=== PATIENT | male | born 1980 | race Caucasian/White ===

== ENCOUNTER 2022-09-10 06:35 | Day surgery (SDC) | payer OTHER ==
[~2022-09-10] VITALS: Ht 170.2 cm; Wt 140.6 kg
[~2022-09-10 06:35] MED LIST: HYDR-4902 PO; [UNRECOGNIZED DRUG - CODE] PO
[2022-09-10] MEDS ORDERED: BUPIVACAINE HCL 0.25% P/F 10 ML VIAL ONE (06:52)
[2022-09-10] MEDS ORDERED: GLYCOPYRROLATE 0.2 MG/ML 1ML VIAL ONE (06:56)
[2022-09-10] MEDS ORDERED: PROPOFOL 10 MG/ML 20 ML IV ONE ×2 (06:56→07:24)
[2022-09-10] MEDS ORDERED: LIDOCAINE 2% (LOCAL ANESTH.) PF 5ml SDV ONE (06:56)
[2022-09-10] MEDS ORDERED: KETOROLAC TROMETH 30 MG/ML 1ML VIAL ONE (06:56)
[2022-09-10] MEDS ORDERED: ONDANSETRON HCL 4 MG/2 ML VIAL ONE (06:56)
[2022-09-10] MEDS ORDERED: DexAMETHasone SOD PHOS 10MG/1ML VIAL INJ ONE (06:57)
[2022-09-10] MEDS ORDERED: ceFAZolin 1GM/50ML 100 ML IV ONE (07:12)
[2022-09-10] MEDS ORDERED: ceFAZolin 1GM VL ONE (07:17)
[2022-09-10 08:15] VITALS: BP 100/57
== END 2022-09-10 08:23 | disposition home or self-care (01) ==
LOC: SUR 06:35
PROVIDERS: ATTEND Orthopaedic Surgery Adult Reconstructive Orthopaedic Surgery
DX: G56.02 Carpal tunnel syndrome, left upper limb (principal); Z20.822 Contact with and (suspected) exposure to COVID-19
CPT/HCPCS: 64721; J0690; J1100; J1885; J2001; J2405; J2704; J3490; U0003

== ENCOUNTER 2024-08-31 09:34 | Day surgery (SDC) | payer OTHER ==
[~2024-08-31] VITALS: Ht 170.2 cm; Wt 142.9 kg
[~2024-08-31 09:34] MED LIST changes: +ALPR0.25 PO; +DICL1GEL86 EX; +LIDO5CRE14 EX; -[UNRECOGNIZED DRUG - CODE] PO
[2024-08-31] MEDS ORDERED: ACETAMINOPHEN IV 1000 MG/100ML (10MG/ML) IV ONE (10:15)
[2024-08-31] MEDS ORDERED: CELECOXIB 100 MG CAP PO ONE (10:15)
[2024-08-31] MEDS ORDERED: GABAPENTIN 400 MG CAP PO ONE (10:15)
[2024-08-31] MEDS ORDERED: GLYCOPYRROLATE 0.2 MG/ML 1ML VIAL ONE ×2 (10:40)
[2024-08-31] MEDS ORDERED: LIDOCAINE 2% (LOCAL ANESTH.) PF 5ml SDV ONE (10:40)
[2024-08-31] MEDS ORDERED: ONDANSETRON HCL 4 MG/2 ML VIAL ONE (10:40)
[2024-08-31] MEDS ORDERED: PROPOFOL 10 MG/ML 20 ML IV ONE ×4 (10:40→11:44)
[2024-08-31] MEDS ORDERED: KETOROLAC TROMETH 30 MG/ML 1ML VIAL ONE (10:40)
[2024-08-31] MEDS ORDERED: DexAMETHasone SOD PHOS 10MG/1ML VIAL INJ ONE (10:40)
[2024-08-31] MEDS ORDERED: ceFAZolin 1GM VL ONE (10:42)
[2024-08-31] MEDS ORDERED: KETAMINE 50mg/ML 1ml syringe ONE (10:58)
[2024-08-31 12:06] VITALS: TEMP 96.9; O2SAT 98
[2024-08-31] MEDS ORDERED: ONDANSETRON HCL 4 MG/2 ML VIAL IV PRN (12:15)
[2024-08-31] MEDS ORDERED: FLUMAZENIL 0.1 MG/ML INJ 10ML MDV IV PRN (12:15)
[2024-08-31] MEDS ORDERED: NALOXONE HCL 0.4 MG/ML VIAL IV PRN (12:15)
[2024-08-31] MEDS ORDERED: ePHEDrine SULFATE 50 MG/ML AMP IV PRN (12:15)
[2024-08-31] MEDS ORDERED: fentaNYL CITRATE 100 MCG/2 ML VL IV PRN (12:15)
[2024-08-31] MEDS ORDERED: HYDROmorphone HCL 2 MG/ML VL/or syr IV PRN (12:15)
[2024-08-31] MEDS ORDERED: hydrALAZINE HCL 20 MG/ML VL IV PRN (12:15)
--- NOTE | 2024-08-31 12:15 | DVHOP2 ---
Operative Report - 2 Report Details Date: 08/31/24 Preop Diagnosis: Left leg varicose veins Postop Diagnosis: Same Surgeon: Noah Parks MD Anesthesiologist: Spinal Anesthesia: Regional Consent: The patient was informed of the risks and benefits of the procedure. These include but are not limited to complications of anesthesia, postoperative infection, incomplete relief of symptoms, recurrence of symptoms, damage to blood vessels, nerves and tendons, deep venous thrombosis, pulmonary embolism and possible need for repeat surgery in the future. Estimated Blood Loss: 50 mL Indications for Surgery: Left leg varicose veins symptomatic Name of Procedure Performed Left leg phlebectomy greater than 20 incisions Procedure Details Procedure Details: Patient was identified in the preop hold area is being . He was consented and preop by myself. Patient was then stood up unremarkable was branch varicosities was then brought back to the operating room placed the operating table in supine position after adequate induction of anesthesia antibiotics and time-out the left leg was prepped and draped in normal surgical fashion stab incision was made directly over the marked branch varicosities using mosquitos and clamps the vessels were tease out all large varicosities veins were tied off with 3-0 Vicryl sutures. Once all veins had been treated hemostasis obtained with manual pressure as needed. The wounds were then closed with Dermabond. A multilayer compression wrap including gauze Kerlix ABDs Alexsander wrap and Coban were applied. Patient tolerated procedure well was taken in the PACU in a stable condition sponge and needle counts were correct. Specimen: Varicose veins left leg Condition Good Disposition Home NOAH PARKS Jr., MD Aug 31, 2024 12:15
[2024-08-31 12:51] VITALS: O2SAT 99
[2024-08-31 14:20] VITALS: BP 111/67; PULSE 60; RESP 20
== END 2024-08-31 14:40 | disposition home or self-care (01) ==
LOC: SUR 09:34
PROVIDERS: ATTEND Surgery Vascular Surgery
DX: I83.92 Asymptomatic varicose veins of left lower extremity (principal); I87.8 Other specified disorders of veins; I50.9 Heart failure, unspecified; Z79.899 Other long term (current) drug therapy; Z98.84 Bariatric surgery status; Z98.890 Other specified postprocedural states
CPT/HCPCS: 37766; 88305; J0690; J1100; J1885; J2003; J2405; J2704